=== PATIENT | male | born 1985 | race American Indian/Alaskan Native ===

== ENCOUNTER 2020-01-05 11:25 | Emergency (ER) | payer SELFPAY ==
[2020-01-05 11:30] VITALS: BP 143/93
--- NOTE | 2020-01-05 12:04 | Emergency Department Report ---
Stated Complaint: THROAT PAIN/TRISTON Time Seen by Provider: 01/05/20 12:04 - HPI History of Present Illness: Pt had republican last night and found out someone had covid he went to urgent care for swab and they wanted 135.00 He came here for swab Pt has no cough, sob or fever ambulatory non ill non toxic - ROS Review of Systems: no symptoms - Exam Vital Signs: Vital Signs 01/05/20 01/05/20 11:26 11:29 Temperature 97.6 F 97.6 F Pulse Rate 65 67 Respiratory 18 16 Rate Blood Pressure 143/93 143/93 O2 Sat by Pulse 98 99 Oximetry Physical Exam: a/o s1s2 lungs cta abd snt ambulatory maew throat normal; no exudates MSE screening note: Focused history and physical exam performed. Due to findings the following was ordered: Patient discussed with doctor:: CRISSY TORRES ED Medical Decision Making - Medical Decision Making educated on covid s/s and testing dc home with referral to local drive up for testing that may be inexpensive ED Disposition for MSE Disposition: MED SCREENING EXAM-LEFT Condition: Stable Time of Disposition: 12:14
== END 2020-01-05 12:27 | disposition left against medical advice (07) ==
LOC: ED 11:25
DX: R07.0 Pain in throat (principal); Z88.1 Allergy status to other antibiotic agents; Z71.1 Person with feared health complaint in whom no diagnosis is made
CPT/HCPCS: 99282